=== PATIENT | male | born 1950 | race Two or more races ===

== ENCOUNTER 2016-12-11 16:09 | Emergency (ER) | payer OTHER ==
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
[2016-12-11] MEDS ORDERED: fentaNYL-PF 50 mCg/mL 2 mL Inj IVPUSH PRN (16:20)
[2016-12-11] MEDS ORDERED: Ondansetron 2 mg/mL 2 mL Inj IVPUSH ONE (16:20)
[2016-12-11 16:30] LABS: BASOPHILS % (AUTO) 0.3 % (0-3); EOSINOPHILS % (AUTO) 1.2 % (0-5); MONOCYTES % (AUTO) 6.4 % (4-12); Mean Corpuscular Hemoglobin 32.4 pg (27.0-35.0); Mean Corpuscular Volume 92.3 fL (81-100); NEUTROPHILS % (AUTO) 62.8 % (40-74); Platelet Count 241 bil/L (150-400)
[2016-12-11 16:48] LABS: INR 0.95 ratio
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
[2016-12-11 18:50] VITALS: BP 151/78; PULSE 64; RESP 20; O2SAT 97
[2016-12-11 18:51] VITALS: BP 151/78; PULSE 64; RESP 20; O2SAT 97
== END 2016-12-11 18:52 | disposition home or self-care (01) ==
LOC: SED 16:09
DX: S16.1XXA Strain of muscle, fascia and tendon at neck level, initial encounter (principal); V48.5XXA Car driver injured in noncollision transport accident in traffic accident, initial encounter; Y93.89 Activity, other specified; Y92.411 Interstate highway as the place of occurrence of the external cause; Y99.8 Other external cause status; E11.9 Type 2 diabetes mellitus without complications
CPT/HCPCS: 36415; 70450; 71010; 72125; 74177; 80053; 85014; 85018; 85025; 85610; 85730; 86850; 99285; G0390; G0480; Q9967